=== PATIENT | female | born 1950 | race Two or more races ===

== ENCOUNTER 2024-06-15 15:04 | Emergency (ER) | payer MEDICARE, BC ==
[~2024-06-15] VITALS: Ht 167.6 cm; Wt 73.0 kg
[2024-06-15 15:06] VITALS: O2SAT 98
[2024-06-15 16:37] LABS: BASOPHILS % 0.5 % (0.0-2.0); EOSINOPHILS % 0.9 % (0.0-5.0); HEMATOCRIT. 35.7 % (36.0-48.0); HEMOGLOBIN. 11.5 g/dL (12.0-16.0); MEAN CORPUSCULAR HEMOGLOBIN 28.7 pg (28.0-32.0); MEAN CORPUSCULAR HGB CONC 32.1 g/dL (31.0-37.0); MEAN CORPUSCULAR VOLUME 89.5 fL (81.0-99.0); MEAN PLATELET VOLUME 8.6 fl (7.4-10.4); MONOCYTES % 4.8 % (2.0-8.0); NEUTROPHILS % 79.8 % (40.0-76.0); PLATELET 188 x1000/uL (130-400); RED BLOOD CELL COUNT 3.99 mill/uL (4.2-5.4); RED CELL DISTRIBUTION WIDTH 14.7 % (11.6-14.6); WHITE BLOOD COUNT 6.8 x1000/uL (4.5-11.0)
[2024-06-15 16:41] LABS: CHLORIDE 107 mEq/L (98-107); POTASSIUM 4.4 mEq/L (3.5-5.1); SODIUM 139 mEq/L (136-145)
[2024-06-15 16:42] LABS: CALCIUM 10.1 mg/dL (8.7-10.4); CARBON DIOXIDE 29 mEq/L (21-32)
[2024-06-15] MEDS: ONDANSETRON HCL 4MG/2ML INJ IV STA (16:45)
[2024-06-15] MEDS: MORPHINE SULFATE 4 MG/ML INJ (FOR IV/IM USE) IV STA (16:45)
[2024-06-15] MEDS: SODIUM CHLORIDE 0.9% 1,000 ML IV ONE (16:46)
[2024-06-15 16:47] LABS: CREATININE 0.9 mg/dL (0.6-1.0); GLUCOSE 138 mg/dL (70-105); UREA NITROGEN BLOOD 23 mg/dL (9-23)
[2024-06-15] MEDS ORDERED: HYDR-4001 MT (18:04)
[2024-06-15] MEDS ORDERED: IBUP-2028 MT (18:04)
[2024-06-15] MEDS ORDERED: ONDA-239 PO (18:04)
[2024-06-15 18:20] LABS: INR 0.9; PARTIAL THROMBOPLASTIN TIME 23.4 sec (23.4-31.0); PROTHROMBIN TIME 10.6 sec (9.6-11.0)
[2024-06-15] MEDS: KETOROLAC 15MG/ML VIAL IV ONE (18:43)
[2024-06-15 18:49] VITALS: BP 118/57; PULSE 70; RESP 12; TEMP 36.50292; O2SAT 100
== END 2024-06-15 19:05 | disposition home or self-care (01) ==
LOC: ER 15:04
DX: S42.302A Unspecified fracture of shaft of humerus, left arm, initial encounter for closed fracture (principal); M25.512 Pain in left shoulder; M79.602 Pain in left arm; I48.91 Unspecified atrial fibrillation; R41.82 Altered mental status, unspecified; M25.562 Pain in left knee; W18.39XA Other fall on same level, initial encounter; Y93.89 Activity, other specified; Y92.89 Other specified places as the place of occurrence of the external cause; Y99.8 Other external cause status
CPT/HCPCS: 99285; 70450; 96374; 96361; 96375; 80048; 85025; 85610; 85730; 36415; 73030; 73060; 73560; 73200; J1885; J2405; J2270; J7030; L3670